=== PATIENT | male | born 1945 ===

== ENCOUNTER 2017-09-10 09:43 | Inpatient (IN) | payer MEDICARE, OTHER ==
[2017-09-10 09:43] VITALS: BMI 21.7
--- NOTE | 2017-09-10 12:13 | ED PDOC ---
HPI: General Adult Time Seen by Provider: 09/10/17 11:08 Chief Complaint (Nursing): Abnormal Skin Integrity Chief Complaint (Provider): Extremity Pain History Per: Patient History/Exam Limitations: no limitations Onset/Duration Of Symptoms: Days (x 1 month ) Current Symptoms Are (Timing): Still Present Additional Complaint(s): 71 year old male with a history of diabetes, s/p right DKA who presents to the ED c/o pain in right stump associated with clear discharge. Denies fever. PMD: Dr. Misael Thomas Past Medical History Reviewed: Historical Data, Nursing Documentation, Vital Signs Vital Signs: Last Vital Signs Temp 97 F L 09/10/17 10:59 Pulse 94 H 09/10/17 10:59 Resp 18 09/10/17 10:59 BP 117/62 09/10/17 10:59 Pulse Ox 98 09/10/17 13:42 - Medical History PMH: Anemia, Arthritis (osteoarthritis), Asthma (Required transfusions), Diabetes, GERD Denies: CHF, COPD, HTN, Hypercholesterolemia, Hypothyroidism, Chronic Kidney Disease, Rheumatoid Arthritis - Surgical History Other surgeries: right BKA - Family History Family History: States: Unknown Family Hx - Home Medications Home Medications: Ambulatory Orders Medication Instructions Recorded Ferrous Sulfate 325 mg PO BID 10/09/14 Metformin Hydrochloride/Janee 1 tab PO BID #0 tab 02/04/15 [Janumet 1000 mg-50 mg] Naproxen Sodium [Aleve] 440 mg PO BID PRN 04/10/15 - Allergies Allergies/Adverse Reactions: Allergies Allergy/AdvReac Type Severity Reaction Status Date / Time No Known Allergies Allergy Verified 09/10/17 10:59 Review of Systems ROS Statement: Except As Marked, All Systems Reviewed And Found Negative Constitutional: Negative for: Fever Musculoskeletal: Positive for: Other (right stump pain) Physical Exam - Reviewed Nursing Documentation Reviewed: Yes Vital Signs Reviewed: Yes - Physical Exam Appears: Positive for: Non-toxic, No Acute Distress Head Exam: Positive for: ATRAUMATIC, NORMOCEPHALIC Skin: Positive for: Normal Color, Warm, Dry Eye Exam: Positive for: Normal appearance, EOMI Cardiovascular/Chest: Positive for: Regular Rate, Rhythm. Negative for: Murmur Respiratory: Positive for: Normal Breath Sounds. Negative for: Wheezing Gastrointestinal/Abdominal: Positive for: Normal Exam, Soft. Negative for: Tenderness Extremity: Positive for: Other (right stump has clear serous fluid). Negative for: Tenderness (erytema or warmth from distal stump) Neurologic/Psych: Positive for: Alert, Oriented - Laboratory Results Result Diagrams: 09/10/17 12:15 09/10/17 12:15 - ECG O2 Sat by Pulse Oximetry: 98 (RA) Pulse Ox Interpretation: Normal Medical Decision Making Medical Decision Making: Time: 11:54 Initial Plan: --VBG shock panel --CMP --CBC --Blood cx --Wound cx --Tibula Fibula right x-ray Time: 12:55 Tibula Fibula X-ray FINDINGS: BONES: Amputation changes at the level of the proximal 1/3 of the right tibia/ fibula. The distal of bony margins of the tibia and fibula are somewhat irregular with areas of what probably represent chronic periosteal reaction possibly due to the amputation itself, however the possibility of an early osteomyelitis cannot be excluded. Followup MRI or 3 phase bone scan recommended. No gas is seen within the soft tissues. JOINT SPACES: Minor degenerative changes medial compartment. OTHER FINDINGS: None. IMPRESSION: Amputation at the level of the proximal right tibia and fibula. Of the distal bony margins of the tibia and fibula are somewhat irregular with what appears represent some chronic periosteal reaction due the amputation itself however the possibility of early osteomyelitis not excluded. Followup three-phase bone scan or MRI of recommended. No evidence of subcutaneous emphysema. Scribe Attestation: Documented by Bozena Rm, acting as a scribe for Dante Montana MD Provider Scribe Attestation: All medical record entries made by the Scribe were at my direction and personally dictated by me. I have reviewed the chart and agree that the record accurately reflects my personal performance of the history, physical exam, medical decision making, and the department course for this patient. I have also personally directed, reviewed, and agree with the discharge instructions and disposition. Disposition - Clinical Impression Clinical Impression: Osteomyelitis, DM type 2 (diabetes mellitus, type 2) - Patient ED Disposition Is Patient to be Admitted: Yes - Disposition Disposition Time: 16:12 Condition: FAIR Forms: [employer] (Swedish) - Pt Status Changed To: Hospital Disposition Of: Inpatient - Admit Certification Admit to Inpatient:: After my assessment, the patient will require hospitalization for at least two midnights. This is because of the severity of symptoms shown, intensity of services needed, and/or the medical risk in this patient being treated as an outpatient. - POA Present On Arrival: None
[2017-09-10 12:32] LABS: VENOUS BLOOD GAS BASE EXCESS 1.7 mmol/L (0.0-2.0); VENOUS BLOOD GAS PCO2 42 mmHg (40-60); VENOUS BLOOD GAS PO2 51 mm/Hg (30-55); VENOUS BLOOD PH 7.41 (7.32-7.43)
[2017-09-10 12:34] LABS: BASO % 0.6 % (0.0-2.0); EOS # 0.7 K/uL (0.0-0.7); EOS % 9.4 % (0.0-4.0); HEMOGLOBIN 10.3 g/dL (12.0-18.0); LYMPH # 1.7 K/uL (1.0-4.3); LYMPH % 21.9 % (20.0-40.0); MEAN CELL VOLUME 87.8 fl (80.0-94.0); MEAN CORPUSCULAR HGB CONC 34.1 g/dL (33.0-37.0); MEAN PLATELET VOLUME 8.6 fl (7.2-11.7); MONO # 0.4 K/uL (0.0-0.8); MONO % 5.8 % (0.0-10.0); NEUT # 4.8 K/uL (1.8-7.0); NEUT % 62.3 % (50.0-75.0); NRBC % 0.1 % (0.0-0.0); RBC 3.44 Mil/uL (4.40-5.90); RED CELL DISTRIBUTION WIDTH 14.2 % (11.5-14.5); WHITE BLOOD COUNT 7.6 K/uL (4.8-10.8)
[2017-09-10 12:35] LABS: ALBUMIN 4.2 g/dL (3.5-5.0); ALT/SGPT 30 U/L (21-72); AST/SGOT 37 U/L (17-59); BLOOD UREA NITROGEN 28 mg/dl (9-20); CALCIUM 9.8 mg/dL (8.4-10.2); GFR AFRICAN-AMERICAN > 60; GFR NON-AFRICAN AMERICAN > 60
[2017-09-10 12:38] LABS: ALB/GLOB RATIO 0.9 (1.0-2.1)
--- NOTE | 2017-09-10 12:56 | RAD ---
PROCEDURE: Right tibia/ fibula dated 09/10/2017 HISTORY: Rule out osteomyelitis COMPARISON: No prior study available for comparison TECHNIQUE: AP and lateral views obtained. FINDINGS: BONES: Amputation changes at the level of the proximal 1/3 of the right tibia/ fibula. The distal of bony margins of the tibia and fibula are somewhat irregular with areas of what probably represent chronic periosteal reaction possibly due to the amputation itself, however the possibility of an early osteomyelitis cannot be excluded. Followup MRI or 3 phase bone scan recommended. No gas is seen within the soft tissues. JOINT SPACES: Minor degenerative changes medial compartment. OTHER FINDINGS: None. IMPRESSION: Amputation at the level of the proximal right tibia and fibula. Of the distal bony margins of the tibia and fibula are somewhat irregular with what appears represent some chronic periosteal reaction due the amputation itself however the possibility of early osteomyelitis not excluded. Followup three-phase bone scan or MRI of recommended. No evidence of subcutaneous emphysema. The the the the the
[2017-09-10] MEDS ORDERED: Gadodiamide 287 MG/ML VIAL (15ML) IV ONE (14:24)
[2017-09-10] MEDS ORDERED: Piperacillin/Tazobact 3.375 GM in Sodium Chloride 0.9% 100 ML IVPB STA (15:06)
--- NOTE | 2017-09-10 16:15 | MRI ---
PROCEDURE: Right lower extremity MRI without and with contrast HISTORY: r/o osteo BKA stump COMPARISON: Right tibia fibula radiographs 09/10/2017. TECHNIQUE: Multiplanar multisequential MR imaging of the stump of the patient's right lower extremity, status post right below the knee and amputation several years previously was performed prior to and following intravenous gadolinium striation. Omniscan was utilized for gadolinium contrast to a volume of 13 cc. T1 weighted fat suppression imaging was utilized in contrast related as well as precontrast T1 imaging. FINDINGS: There is extensive edema seen throughout the [place]row of the residual proximal diaphysis of the right tibia and is seen greater the medial the lateral right tibial metaphysis as well. This edema pattern extends to the left tibial plateau level without gross cortical erosion appreciated. No fractures appreciated and the pattern is seen enhancing in the same distribution following intravenous gadolinium administration. The findings are compatible with extensive osteomyelitis throughout the residual right tibia. Incidental capture of the right knee reveals no subluxation or dislocation although 4.3 cm Gonzalez's cyst is identified. Advanced osteoarthritis seen throughout the incidentally captured bilateral knees in all 3 compartments. Prominent cellulitis pattern is appreciated throughout the amputation stump as well, with a small abscess measuring 0.9 x 1.3 x 3.2 cm deep to the subcutaneous fat at the distal midline stump soft tissue. IMPRESSION: Findings most compatible with extensive osteomyelitis affecting the residual tibia status post [id number] amputation right lower extremity. 3.2 cm abscess has developed in the midline soft tissues deep to the subcutaneous fat at the distal most portion of the stump. Small medial Gonzalez's cyst incidentally noted. Incidental degenerative joint disease bilateral knees.
--- NOTE | 2017-09-10 17:03 | CP.PCM.HP ---
History of Present Illness - History of Present Illness History of Present Illness: CC: leg pain HPI: 71 year old male PMH DM with bilateral BKA, presents with a several day history of worsening moderate sharp nonradiating pain at site of L BKA, with some oozing of yellow drainage. XR and MRI +osteomyelitis. Vanc and Zosyn initiated in ER. No WBC, afebrile. ID consult Dr. Camejo. Discussed with ER physician. ROS: Per HPI, all other systems reviewed and neg PMH: DM PSH: B/L BKA FH: DM SH: denies tobacco, ETOH, IVDU NKDA Vitals Reviewed GEN: WDWN, ALERT, COOPERATIVE HEENT: NCAT, PERRL, EOMI HEART: RRR, +S1S2, NO MRG LUNG: CTAB, NO WRR ABD: SOFT, NT, ND, NO HSM, NO MASSES EXT: B/L BKA. AREA OF DRAINAGE L BKA NEURO: AAOX3 SKIN: WARM, DRY PSYCH: NORMAL MOOD, NORMAL AFFECT LABS 09/10/17 09/10/17 09/10/17 12:15 12:15 11:35 WBC 7.6 RBC 3.44 L Hgb 10.3 L Hct 30.2 L MCV 87.8 D MCH 30.0 MCHC 34.1 RDW 14.2 Plt Count 435 H MPV 8.6 Neut % (Auto) 62.3 Lymph % (Auto) 21.9 Jefferson % (Auto) 5.8 Eos % (Auto) 9.4 H Baso % (Auto) 0.6 Neut # 4.8 Lymph # 1.7 Jefferson # 0.4 Eos # 0.7 Baso # 0.0 pO2 51 VBG pH 7.41 VBG pCO2 42 VBG HCO3 26.0 VBG Total CO2 27.9 VBG O2 Sat (Calc) 89.7 H VBG Base Excess 1.7 VBG Potassium 4.8 Sodium 140 134.0 Chloride 101 103.0 Glucose 155 H Lactate 1.0 FiO2 21.0 Potassium 4.8 Carbon Dioxide 25 Anion Gap 19 BUN 28 H Creatinine 1.0 Est GFR ( Amer) > 60 Est GFR (Non-Af Amer) > 60 Random Glucose 158 H Calcium 9.8 Total Bilirubin 0.2 AST 37 ALT 30 Alkaline Phosphatase 106 Total Protein 9.0 H Albumin 4.2 Globulin 4.8 H Albumin/Globulin Ratio 0.9 L Venous Blood Potassium 4.8 IMAGING STUDIES XR and MRI + osteomyelitis MEDICATIONS Ferrous Sulfate [Ferrous Sulfate] 325 mg PO BID Piperacillin/Tazobact [Zosyn] 3.375 gm Sodium Chloride 0.9% 100 ml IVPB Q8 Vancomycin [Vancomycin Inj] 1,000 mg Sodium Chloride 0.9% 250 ml IVPB Q12H SITagliptin [Januvia] 50 mg PO DAILY ASSESSMENT AND PLAN 71 year old male PMH DM with bilateral BKA, presents with a several day history of worsening moderate sharp nonradiating pain at site of L BKA, with some oozing of yellow drainage. XR and MRI +osteomyelitis. Vanc and Zosyn initiated in ER. No WBC, afebrile. ID consult Dr. Camejo. Discussed with ER physician. Osteomyelitis L BKA afebrile, no leukocytosis Vanc and Zosyn initiated 09/10/[address] Camejo appreciated and followed PICC for tomorrow by IR DM Continue Januvia accuchecks complex carb diet ISS Azotemia NS @ 125 cc/hr one bag monitor renal function VTE ppx Lovenox Present on Admission - Present on Admission Any Indicators Present on Admission: No Past Patient History - Infectious Disease Hx of Infectious Diseases: None - Tetanus Immunizations Tetanus Immunization: Unknown - Past Medical History & Family History Past Medical History?: Yes - Past Social History Smoking Status: Never Smoked - CARDIAC Hx Congestive Heart Failure: No Hx Hypercholesterolemia: No Hx Hypertension: No - PULMONARY Hx Asthma: Yes (Required transfusions) Hx Chronic Obstructive Pulmonary Disease (COPD): No - NEUROLOGICAL Hx Neurological Disorder: No - HEENT Hx HEENT Problems: No - RENAL Hx Chronic Kidney Disease: No - ENDOCRINE/METABOLIC Hx Hypothyroidism: No - HEMATOLOGICAL/ONCOLOGICAL Hx Anemia: Yes - INTEGUMENTARY Hx Dermatological Problems: No - MUSCULOSKELETAL/RHEUMATOLOGICAL Hx Arthritis: Yes (osteoarthritis) Hx Rheumatoid Arthritis: No - GASTROINTESTINAL Hx Gastrointestinal Disorders: Yes Hx Gastroesophageal Reflux: Yes - GENITOURINARY/GYNECOLOGICAL Hx Genitourinary Disorders: No - PSYCHIATRIC Hx Psychophysiologic Disorder: No Hx Substance Use: No - SURGICAL HISTORY Hx Surgeries: Yes Hx Amputation: Yes (bilateral bka) Other/Comment: R BKA, L foot surgery/amputations, patient currently goes to hyperbaric treatment,. right finger amputation as a child - ANESTHESIA Hx Anesthesia: Yes Hx Anesthesia Reactions: No Hx Malignant Hyperthermia: No Meds Allergies/Adverse Reactions: Allergies Allergy/AdvReac Type Severity Reaction Status Date / Time No Known Allergies Allergy Verified 09/10/17 10:59 Results - Vital Signs Recent Vital Signs: Last Vital Signs Temp 97 F L 09/10/17 10:59 Pulse 94 H 09/10/17 10:59 Resp 18 09/10/17 10:59 BP 117/62 09/10/17 10:59 Pulse Ox 98 09/10/17 16:12 - Labs Result Diagrams: 09/10/17 12:15 09/10/17 12:15 Labs: Laboratory Results - last 24 hr 09/10/17 09/10/17 09/10/17 11:35 12:15 12:15 WBC 7.6 RBC 3.44 L Hgb 10.3 L Hct 30.2 L MCV 87.8 D MCH 30.0 MCHC 34.1 RDW 14.2 Plt Count 435 H MPV 8.6 Neut % (Auto) 62.3 Lymph % (Auto) 21.9 Jefferson % (Auto) 5.8 Eos % (Auto) 9.4 H Baso % (Auto) 0.6 Neut # 4.8 Lymph # 1.7 Jefferson # 0.4 Eos # 0.7 Baso # 0.0 pO2 51 VBG pH 7.41 VBG pCO2 42 VBG HCO3 26.0 VBG Total CO2 27.9 VBG O2 Sat (Calc) 89.7 H VBG Base Excess 1.7 VBG Potassium 4.8 Sodium 134.0 140 Chloride 103.0 101 Glucose 155 H Lactate 1.0 FiO2 21.0 Potassium 4.8 Carbon Dioxide 25 Anion Gap 19 BUN 28 H Creatinine 1.0 Est GFR ( Amer) > 60 Est GFR (Non-Af Amer) > 60 Random Glucose 158 H Calcium 9.8 Total Bilirubin 0.2 AST 37 ALT 30 Alkaline Phosphatase 106 Total Protein 9.0 H Albumin 4.2 Globulin 4.8 H Albumin/Globulin Ratio 0.9 L Venous Blood Potassium 4.8
[2017-09-10] MEDS ORDERED: Piperacillin/Tazobact 3.375 GM in Sodium Chloride 0.9% 100 ML IVPB SCH (17:15)
[2017-09-10] MEDS: Insulin Regular 100 units/ml SC SCH (22:23)
[2017-09-11] MEDS ORDERED: Piperacillin/Tazobact 3.375 GM in Sodium Chloride 0.9% 100 ML IVPB SCH (04:00)
[2017-09-11 06:11] LABS: HEMOGLOBIN 9.3 g/dL (12.0-18.0); MEAN CELL VOLUME 88.5 fl (80.0-94.0); MEAN CORPUSCULAR HEMOGLOBIN 29.2 pg (27.0-31.0); RBC 3.19 Mil/uL (4.40-5.90); RED CELL DISTRIBUTION WIDTH 13.8 % (11.5-14.5); WHITE BLOOD COUNT 8.4 K/uL (4.8-10.8)
[2017-09-11 06:21] LABS: BLOOD UREA NITROGEN 25 mg/dl (9-20); GFR AFRICAN-AMERICAN > 60; GFR NON-AFRICAN AMERICAN > 60
[2017-09-11] MEDS: Insulin Regular 100 units/ml SC SCH ×4 (06:35→21:37)
[2017-09-11] MEDS: Enoxaparin 40 mg Syringe SC SCH (08:12)
--- NOTE | 2017-09-11 10:10 | CP.PCM.PN ---
<Kyra Garcia - Last Filed: 09/11/17 15:12> Subjective - Date & Time of Evaluation Date of Evaluation: 09/11/17 Time of Evaluation: 10:06 - Subjective Subjective: 71 y/o male patient with PMHx of DM and bilateral BKA was seen and evaluated at bedside this morning for a right distal stump wound. Patient is AAOx3 and is in NAD. Patient denies of any acute overnight events. States that the wound was draining yellow fluid but not pus at the time of admission. Patient states that the drainage has stopped since the admission. Denies of having any pain to the stump today unless if touched. Denies of having any overnight F/N/V/C/SOB/CP/ headache/diarrhea. Denies of having any new complains at this time. Objective - Vital Signs/Intake and Output Vital Signs (last 24 hours): Temp Pulse Resp BP Pulse Ox 97.6 F 72 18 105/63 100 09/11/17 07:56 09/11/17 07:56 09/11/17 07:56 09/11/17 07:56 09/11/17 07:56 - Medications Medications: Current Medications Enoxaparin Sodium (Lovenox) 40 mg SC DAILY HERMINIO PRN Reason: Protocol Last Admin: 09/11/17 08:12 Dose: 40 mg Ferrous Sulfate (Feosol) 325 mg PO BID HERMINIO Last Admin: 09/11/17 08:12 Dose: 325 mg Vancomycin HCl 1 gm/ Sodium (Chloride) 250 mls @ 166.667 mls/hr IVPB Q12H HERMINIO PRN Reason: Protocol Last Admin: 09/11/17 04:55 Dose: 166.667 mls/hr Piperacillin Sod/Tazobactam (Sod 3.375 gm/ Sodium Chloride) 100 mls @ 100 mls/ hr IVPB Q8@0400,1200,2000 HERMINIO PRN Reason: Protocol Last Admin: 09/11/17 03:33 Dose: 100 mls/hr Insulin Human Regular (Humulin R) 0 units SC ACHS HERMINIO PRN Reason: Protocol Last Admin: 09/11/17 06:35 Dose: Not Given Sitagliptin Phosphate (Januvia) 50 mg PO DAILY HERMINIO Last Admin: 09/11/17 08:12 Dose: 50 mg - Labs Labs: 09/11/17 05:35 09/11/17 05:44 - Constitutional Appears: Well, Non-toxic, No Acute Distress - Head Exam Head Exam: ATRAUMATIC - Eye Exam Eye Exam: Normal appearance - ENT Exam ENT Exam: Normal Exam - Neck Exam Neck Exam: Full ROM, Normal Inspection - Respiratory Exam Respiratory Exam: Clear to Ausculation Bilateral, NORMAL BREATHING PATTERN - Cardiovascular Exam Cardiovascular Exam: REGULAR RHYTHM, +S1, +S2 - GI/Abdominal Exam GI & Abdominal Exam: Soft, Normal Bowel Sounds - Rectal Exam Rectal Exam: Deferred - Extremities Exam Extremities Exam: Full ROM, Normal Inspection, Tenderness - Back Exam Back Exam: Full ROM, NORMAL INSPECTION - Neurological Exam Neurological Exam: Alert, Awake, Oriented x3 - Psychiatric Exam Psychiatric exam: Normal Affect, Normal Mood - Skin Skin Exam: Dry, Warm Additional comments: wound measuring approximately 1.0 cm x 1.0 cm x 0.1 cm on the distal aspect of the right BKA stump. No active drainage, no malodor, no tunneling, no undermining, no surrounding erythema, no probe to bone, mild non-pitting edema noted on the right Left superior to fibular head, healed ulceration noted with no break in the skin Assessment and Plan - Assessment and Plan (Free Text) Assessment: 71 y/o male patient with PMHx of DM and bilateral BKA evaluated for a right distal stump wound. Plan: 1). Osteomyelitis R BKA - afebrile, no leukocytosis - Vanc and Zosyn initiated 09/10/17 - ID consult Dr. Camejo appreciated and followed - PICC today by IR 2). Diabetes - Continue Januvia - accuchecks - complex carb diet - ISS 3). Azotemia - NS @ 125 cc/hr - Monitor renal function 4). VTE ppx - Lovenox 40 mg qd <Becky Paniagua - Last Filed: 09/11/17 16:18> Objective - Vital Signs/Intake and Output Vital Signs (last 24 hours): Temp Pulse Resp BP Pulse Ox 97.4 F L 80 18 102/79 100 09/11/17 10:55 09/11/17 11:20 09/11/17 10:55 09/11/17 11:20 09/11/17 07:56 - Medications Medications: Current Medications Ciprofloxacin (Cipro) 500 mg PO Q12 HERMINIO PRN Reason: Protocol Stop: 09/25/17 10:46 Last Admin: 09/11/17 12:09 Dose: 500 mg Enoxaparin Sodium (Lovenox) 40 mg SC DAILY HERMINIO PRN Reason: Protocol Last Admin: 09/11/17 08:12 Dose: 40 mg Ferrous Sulfate (Feosol) [address] [facility] Last Admin: 09/11/17 08:12 Dose: 325 mg Vancomycin HCl 1 gm/ Sodium (Chloride) 250 mls @ 166.667 mls/hr IVPB Q12H HERMINIO PRN Reason: Protocol Last Admin: 09/11/17 04:55 Dose: 166.667 mls/hr Sodium Chloride (Sodium Chloride 0.9%) 1,000 mls @ 100 mls/hr IV .Q10H [facility] Stop: 09/12/17 10:11 Last Admin: 09/11/17 12:09 Dose: 100 mls/hr Insulin Human Regular (Humulin R) 0 units SC ACHS HERMINIO PRN Reason: Protocol Last Admin: 09/11/17 06:35 Dose: Not Given Sitagliptin Phosphate (Januvia) [address] [facility] Last Admin: 09/11/17 08:12 Dose: 50 mg - Labs Labs: 09/11/17 05:35 09/11/17 05:44 Attending/Attestation - Attestation I have personally seen and examined this patient.: Yes I have fully participated in the care of the patient.: Yes I have reviewed all pertinent clinical information, including history, physical exam and plan: Yes Notes (Text): 09/11/17 16:17 seen examined discussed with resident Dr. Kyra Garcia. Agree with findings and plan as above. ABX adjusted to Vancomycin 1 gm q12 hours for 6 weeks and Cipro 500 mg PO Q12 for 2 weeks. Patient to also be evaluated by General Surgery for possible I/D of appx 3 cm abscess.
[2017-09-11] MEDS ORDERED: Lidocaine 1% Inj (20ml) ONE (10:47)
--- NOTE | 2017-09-11 11:26 | PCM.SURG1 ---
Surgeon's Initial Post Op Note - Surgeon's Notes Surgeon: Howard Covington MD Water Treatment Technician: NONE Type of Anesthesia: Local Pre-Operative Diagnosis: Poor venous access Operative Findings: US showed a patent right brachial veiN. Post-Operative Diagnosis: Poor venous access Operation Performed: Single lumen picc placment right brachial vein, 40 cm. Tip is in the SVC. Specimen/Specimens Removed: none Estimated Blood Loss: EBL {In ML}: 2 Blood Products Given: N/A Drains Used: No Drains Post-Op Condition: Fair Date of Surgery/Procedure: 09/11/17 Time of Surgery/Procedure: 11:20
[2017-09-11] MEDS: Sodium Chloride 0.9% 1,000 ML IV SCH ×2 (12:09→21:40)
[2017-09-12 06:23] LABS: BASO % 0.3 % (0.0-2.0); EOS # 0.5 K/uL (0.0-0.7); EOS % 6.3 % (0.0-4.0); HEMOGLOBIN 8.8 g/dL (12.0-18.0); LYMPH # 1.6 K/uL (1.0-4.3); LYMPH % 18.8 % (20.0-40.0); MEAN CELL VOLUME 89.7 fl (80.0-94.0); MEAN CORPUSCULAR HEMOGLOBIN 29.3 pg (27.0-31.0); MEAN CORPUSCULAR HGB CONC 32.6 g/dL (33.0-37.0); MEAN PLATELET VOLUME 8.1 fl (7.2-11.7); MONO # 0.6 K/uL (0.0-0.8); MONO % 7.2 % (0.0-10.0); NEUT # 5.8 K/uL (1.8-7.0); NEUT % 67.4 % (50.0-75.0); RED CELL DISTRIBUTION WIDTH 14.2 % (11.5-14.5); WHITE BLOOD COUNT 8.6 K/uL (4.8-10.8)
[2017-09-12 06:32] LABS: BLOOD UREA NITROGEN 19 mg/dl (9-20); CALCIUM 8.5 mg/dL (8.4-10.2); GFR AFRICAN-AMERICAN > 60; GFR NON-AFRICAN AMERICAN > 60
--- NOTE | 2017-09-12 07:11 | CP.PCM.CON ---
History of Present Illness - History of Present Illness History of Present Illness: General surgery consult note for Dr. Graciela Veronica, PGY-1 Pt S & E at bedside. 71M w/PMH sig for B/L BKA consulted for L BKA abscess evaluation. Pt admitted to hospital for drainage from L BKA stump, which has been ongoing for past few month. Denies pain, F & C, other problems. PMH: DM, anemia, osteoarthritis, GERD PSH: B/L BKA All: NKDA SH: Denies ETOH, tobacco or illicit drug use Review of Systems - Review of Systems All systems: reviewed and no additional remarkable complaints except - Constitutional Constitutional: absent: Chills, Fever - EENT Nose/Mouth/Throat: absent: Sore Throat - Cardiovascular Cardiovascular: absent: Chest Pain - Respiratory Respiratory: absent: Cough - Gastrointestinal Gastrointestinal: absent: Abdominal Pain - Genitourinary Genitourinary: absent: Change in Urinary Stream - Integumentary Integumentary: Non-Healing Lesions - Psychiatric Psychiatric: absent: Change in Appetite Past Patient History - Infectious Disease Hx of Infectious Diseases: None - Tetanus Immunizations Tetanus Immunization: Unknown - Past Medical History & Family History Past Medical History?: Yes - Past Social History Smoking Status: Never Smoked - CARDIAC Hx Cardiac Disorders: No Hx Congestive Heart Failure: No Hx Hypercholesterolemia: No Hx Hypertension: No - PULMONARY Hx Respiratory Disorders: No Hx Chronic Obstructive Pulmonary Disease (COPD): No Hx Pulmonary Embolism: No - NEUROLOGICAL Hx Neurological Disorder: No - HEENT Hx HEENT Problems: Yes Other/Comment: reading glasses - RENAL Hx Chronic Kidney Disease: No - ENDOCRINE/METABOLIC Hx Endocrine Disorders: Yes Hx Diabetes Mellitus Type 2: Yes Hx Hypothyroidism: No - HEMATOLOGICAL/ONCOLOGICAL Hx Blood Disorders: Yes Hx AIDS: No Hx Anemia: Yes Hx Hepatitis C: No Hx Human Immunodeficiency Virus (HIV): No - INTEGUMENTARY Hx Dermatological Problems: No - MUSCULOSKELETAL/RHEUMATOLOGICAL Hx Musculoskeletal Disorders: Yes Hx Arthritis: Yes (to both hands, reports not taking any meds for problem) Hx Falls: Yes (8 mos ago) Hx Fractures: No - GASTROINTESTINAL Hx Gastrointestinal Disorders: Yes Hx Gastroesophageal Reflux: Yes - GENITOURINARY/GYNECOLOGICAL Hx Genitourinary Disorders: No - PSYCHIATRIC Hx Psychophysiologic Disorder: No Hx Substance Use: No - SURGICAL HISTORY Hx Surgeries: Yes Hx Amputation: Yes (bilateral bka, L 3yrs ago, R 15yrs ago) Other/Comment: R BKA, L foot surgery/amputations, patient currently goes to hyperbaric treatment,. right index and middle finger amputation as a teen from work accident - ANESTHESIA Hx Anesthesia: Yes Hx Anesthesia Reactions: No Hx Malignant Hyperthermia: No Meds Allergies/Adverse Reactions: Allergies Allergy/AdvReac Type Severity Reaction Status Date / Time No Known Allergies Allergy Verified 09/10/17 10:59 - Medications Medications: Current Medications Ciprofloxacin (Cipro) 500 mg PO Q12 HER[facility]IO PRN Reason: Protocol Stop: 09/25/17 10:46 Last Admin: 09/11/17 21:38 Dose: 500 mg Enoxaparin Sodium (Lovenox) 40 mg SC DAILY [facility] PRN Reason: Protocol Last Admin: 09/11/17 08:12 Dose: 40 mg Ferrous Sulfate (Feosol) 325 mg PO BID [facility] [place] Last Admin: 09/11/17 16:34 Dose: 325 mg Vancomycin HCl 1 gm/ Sodium (Chloride) 250 mls @ 166.667 mls/hr IVPB Q12H [facility] [place] PRN Reason: Protocol Last Admin: 09/12/17 05:00 Dose: 166.667 mls/hr Sodium Chloride (Sodium Chloride 0.9%) 1,000 mls @ 100 mls/hr IV .Q10H [facility] Stop: 09/12/17 10:11 Last Admin: 09/11/17 21:40 Dose: Not Given Insulin Human Regular (Humulin R) 0 units SC ACHS HERMINIO PRN Reason: Protocol Last Admin: 09/11/17 21:37 Dose: Not Given Sitagliptin Phosphate (Januvia) 50 mg PO DAILY [facility] [place] Last Admin: 09/11/17 08:12 Dose: 50 mg Physical Exam - Constitutional Appears: Non-toxic, No Acute Distress - Head Exam Head Exam: ATRAUMATIC, NORMAL INSPECTION, NORMOCEPHALIC - Eye Exam Eye Exam: EOMI, Normal appearance - ENT Exam ENT Exam: Mucous Membranes Moist, Normal Exam - Neck Exam Neck exam: Positive for: Full Rom, Normal Inspection - Respiratory Exam Respiratory Exam: NORMAL BREATHING PATTERN - GI/Abdominal Exam GI & Abdominal Exam: Normal Bowel Sounds, Soft. absent: Tenderness - Extremities Exam Additional comments: B/L BKA, L stump without erythema or palpable fluctuance, draining tract at distal aspect, dressing in place with scant drainage noted. - Neurological Exam Neurological exam: Alert, Oriented x3 - Psychiatric Exam Psychiatric exam: Normal Affect, Normal Mood - Skin Skin Exam: Dry, Normal Color, Warm Results - Vital Signs Recent Vital Signs: Last Vital Signs Temp 97.8 F 09/12/17 00:09 Pulse 81 09/12/17 00:09 Resp 18 09/12/17 00:09 BP 106/63 09/12/17 00:09 Pulse Ox 99 09/12/17 00:09 - Labs Result Diagrams: 09/12/17 05:25 09/12/17 05:25 Labs: Laboratory Results - last 24 hr 09/11/17 09/11/17 09/11/17 11:32 15:42 21:07 WBC RBC Hgb Hct MCV MCH MCHC RDW Plt Count MPV Neut % (Auto) Lymph % (Auto) [place] % (Auto) Eos % (Auto) Baso % (Auto) Neut # Lymph # [place] # Eos # Baso # Sodium Potassium Chloride Carbon Dioxide Anion Gap BUN Creatinine Est GFR ( Amer) Est GFR (Non-Af Amer) POC Glucose (mg/dL) 180 H 251 H 97 Random Glucose Calcium 09/12/17 09/12/17 09/12/17 05:25 05:25 05:49 WBC 8.6 RBC 3.00 L Hgb 8.8 L Hct 26.9 L MCV 89.7 MCH 29.3 MCHC 32.6 L RDW 14.2 Plt Count 322 MPV 8.1 Neut % (Auto) 67.4 Lymph % (Auto) 18.8 L [place] % (Auto) 7.2 Eos % (Auto) 6.3 H Baso % (Auto) 0.3 Neut # 5.8 Lymph # 1.6 [place] # 0.6 Eos # 0.5 Baso # 0.0 Sodium 140 Potassium 3.9 Chloride 106 Carbon Dioxide 25 Anion Gap 13 BUN 19 Creatinine 1.0 Est GFR ( Amer) > 60 Est GFR (Non-Af Amer) > 60 POC Glucose (mg/dL) 137 H Random Glucose 154 H Calcium 8.5 Assessment & Plan - Assessment and Plan (Free Text) Assessment: 71M w/PMH sig for B/L BKA with draining tract from L BKA Plan: Cont IV Abx No surgical intervention at this time, tract already draining Will DW attending Veronica, PGY-1 - Date & Time Date: 09/12/17 Time: 06:40
[2017-09-12] MEDS: Insulin Regular 100 units/ml SC SCH ×4 (07:30→21:30)
[2017-09-12] MEDS: Enoxaparin 40 mg Syringe SC SCH (08:48)
[2017-09-12] MEDS: Sodium Chloride 0.9% 1,000 ML IV SCH (08:50)
--- NOTE | 2017-09-12 09:29 | CP.PCM.DIS ---
[facility] Last Filed: 09/12/17 10:32> Provider - Provider Date of Admission: 09/10/17 16:11 Attending physician: Becky Paniagua DO Time Spent in preparation of Discharge (in minutes): 20 Hospital Course - Lab Results Lab Results: Micro Results 09/10/17 12:15 Other: Please Indicate Gram Stain - Final 09/10/17 12:15 Other: Please Indicate Wound Culture - Preliminary Staphylococcus Aureus 09/10/17 16:40 Blood-Venous Blood Culture - Preliminary NO GROWTH AFTER 24 HOURS 09/10/17 12:15 Blood-Venous Blood Culture - Preliminary NO GROWTH AFTER 24 HOURS Most Recent Lab Values WBC 8.6 K/uL (4.8-10.8) 09/12/17 05:25 RBC 3.00 Mil/uL (4.40-5.90) L 09/12/17 05:25 Hgb 8.8 g/dL (12.0-18.0) L 09/12/17 05:25 Hct 26.9 % (35.0-51.0) L 09/12/17 05:25 MCV 89.7 fl (80.0-94.0) 09/12/17 05:25 MCH 29.3 pg (27.0-31.0) 09/12/17 05:25 MCHC 32.6 g/dL (33.0-37.0) L 09/12/17 05:25 RDW 14.2 % (11.5-14.5) 09/12/17 05:25 Plt Count 322 K/uL (130-400) 09/12/17 05:25 MPV 8.1 fl (7.2-11.7) 09/12/17 05:25 Neut % (Auto) 67.4 % (50.0-75.0) 09/12/17 05:25 Lymph % (Auto) 18.8 % (20.0-40.0) L 09/12/17 05:25 [place] % (Auto) 7.2 % (0.0-10.0) 09/12/17 05:25 Eos % (Auto) 6.3 % (0.0-4.0) H 09/12/17 05:25 Baso % (Auto) 0.3 % (0.0-2.0) 09/12/17 05:25 Neut # 5.8 K/uL (1.8-7.0) 09/12/17 05:25 Lymph # 1.6 K/uL (1.0-4.3) 09/12/17 05:25 [place] # 0.6 K/uL (0.0-0.8) 09/12/17 05:25 Eos # 0.5 K/uL (0.0-0.7) 09/12/17 05:25 Baso # 0.0 K/uL (0.0-0.2) 09/12/17 05:25 pO2 51 mm/Hg (30-55) 09/10/17 11:35 VBG pH 7.41 (7.32-7.43) 09/10/17 11:35 VBG pCO2 42 mmHg (40-60) 09/10/17 11:35 VBG HCO3 26.0 mmol/L 09/10/17 11:35 VBG Total CO2 27.9 mmol/L (22-28) 09/10/17 11:35 VBG O2 Sat (Calc) 89.7 % (40-65) H 09/10/17 11:35 VBG Base Excess 1.7 mmol/L (0.0-2.0) 09/10/17 11:35 VBG Potassium 4.8 mmol/L (3.6-5.2) 09/10/17 11:35 Sodium 134.0 mmol/L (132-148) 09/10/17 11:35 Chloride 103.0 mmol/L (98-107) 09/10/17 11:35 Glucose 155 mg/dL (75-110) H 09/10/17 11:35 Lactate 1.0 mmol/L (0.7-2.1) 09/10/17 11:35 FiO2 21.0 % 09/10/17 11:35 Sodium 140 mmol/l (132-148) 09/12/17 05:25 Potassium 3.9 MMOL/L (3.6-5.0) 09/12/17 05:25 Chloride 106 mmol/L (98-107) 09/12/17 05:25 Carbon Dioxide 25 mmol/L (22-30) 09/12/17 05:25 Anion Gap 13 (10-20) 09/12/17 05:25 BUN 19 mg/dl (9-20) 09/12/17 05:25 Creatinine 1.0 mg/dl (0.8-1.5) 09/12/17 05:25 Est GFR ( Amer) > 60 09/12/17 05:25 Est GFR (Non-Af Amer) > 60 09/12/17 05:25 POC Glucose (mg/dL) 137 mg/dL (65-110) H 09/12/17 05:49 Random Glucose 154 mg/dL (75-110) H 09/12/17 05:25 Calcium 8.5 mg/dL (8.4-10.2) 09/12/17 05:25 Total Bilirubin 0.2 mg/dl (0.2-1.3) 09/10/17 12:15 AST 37 U/L (17-59) 09/10/17 12:15 ALT 30 U/L (21-72) 09/10/17 12:15 Alkaline Phosphatase 106 U/L (38-126) 09/10/17 12:15 Total Protein 9.0 G/DL (6.3-8.2) H 09/10/17 12:15 Albumin 4.2 g/dL (3.5-5.0) 09/10/17 12:15 Globulin 4.8 gm/dL (2.2-3.9) H 09/10/17 12:15 Albumin/Globulin Ratio 0.9 (1.0-2.1) L 09/10/17 12:15 Venous Blood Potassium 4.8 mmol/L (3.6-5.2) 09/10/17 11:35 - Hospital Course Hospital Course: 71 y/o male patient with PMHx of DM and bilateral BKA was admitted to hospital for a right distal stump wound. Upon arrival patient was afebrile and no leukocytosis was appreciated but the wound site showed drainage and increase in warmth. Wound cultures from the stump presented Staph. aureus. Patient received an MRI of the lower extremity which presented with increase in signal intensity on the right tibia which is consistent with osteomyelitis. Patient was also found to have an abscess on the right which drained on its own. General surgery team was consulted who recommended no I&D since the abscess was already draining on its own. Patient was also seen by infectious disease who recommended 6 weeks of IV vancomycin and 2 weeks of ciprofloxacin. Patient received PICC line for vermin exterminator IV abx. Patient is stable and will be discharged home. 1). Osteomyelitis R BKA - afebrile, no leukocytosis - Vanc and Zosyn initiated 09/10/17 - ID consult Dr. Camejo appreciated and followed - ABX adjusted to Vancomycin 1 gm q12 hours for 6 weeks and Cipro 500 mg PO Q12 for 2 weeks. - PICC in place 2). Diabetes - Continue Januvia - accuchecks - complex carb diet - ISS 3). Azotemia - Resolved - Date & Time of H&P Date of H&P: 09/12/17 Time of H&P: 09:18 Discharge Exam - Head Exam Head Exam: ATRAUMATIC, NORMAL INSPECTION, NORMOCEPHALIC - Eye Exam Eye Exam: Normal appearance Pupil Exam: NORMAL ACCOMODATION - ENT Exam ENT Exam: Normal Exam - Neck Exam Neck exam: Full Rom, Normal Inspection - Respiratory Exam Respiratory Exam: NORMAL BREATHING PATTERN, UNREMARKABLE - Cardiovascular Exam Cardiovascular Exam: REGULAR RHYTHM, +S1, +S2 - GI/Abdominal Exam GI & Abdominal Exam: Normal Bowel Sounds, Unremarkable - Rectal Exam Rectal Exam: Deferred - Extremities Exam Extremities exam: full ROM, normal inspection - Neurological Exam Neurological exam: Alert, Oriented x3 - Psychiatric Exam Psychiatric exam: Normal Affect, Normal Mood - Skin Skin Exam: Normal Color, Warm Additional comments: wound measuring approximately 1.0 cm x 1.0 cm x 0.1 cm on the distal aspect of the right BKA stump. mild active drainage, no malodor, no tunneling, no undermining, no surrounding erythema, no probe to bone, mild non-pitting edema noted on the right Left superior to fibular head, healed ulceration noted with no break in the skin Discharge Plan - Discharge Medications Prescriptions: Ciprofloxacin [Cipro] 500 mg PO Q12 #14 tab Vancomycin/0.9 % Sod Chloride [Vanco 1 Gram/250 ml-0.9% NaCl] 1 gm IV Q12 #84 plast..bag - Follow Up Plan Condition: GOOD Disposition: HOME/ ROUTINE Instructions: Osteomyelitis (DC), Peripherally Inserted Central Catheters and Midline Catheters (DC) Additional Instructions: homecare services for home infusions . follow up with pmd 7-10 days Referrals: Deborah Polanco MD [Staff Provider] - Cassandra Camejo MD [Staff Provider] - Misael Thomas MD [Family Provider] - <Becky Paniagua - Last Filed: 09/12/17 11:23> Provider - Provider Date of Admission: 09/10/17 16:11 Attending physician: Becky Paniagua DO Hospital Course - Lab Results Lab Results: Micro Results 09/10/17 12:15 Other: Please Indicate Gram Stain - Final 09/10/17 12:15 Other: Please Indicate Wound Culture - Preliminary Staphylococcus Aureus 09/10/17 16:40 Blood-Venous Blood Culture - Preliminary NO GROWTH AFTER 24 HOURS 09/10/17 12:15 Blood-Venous Blood Culture - Preliminary NO GROWTH AFTER 24 HOURS Most Recent Lab Values WBC 8.6 K/uL (4.8-10.8) 09/12/17 05:25 RBC 3.00 Mil/uL (4.40-5.90) L 09/12/17 05:25 Hgb 8.8 g/dL (12.0-18.0) L 09/12/17 05:25 Hct 26.9 % (35.0-51.0) L 09/12/17 05:25 MCV 89.7 fl (80.0-94.0) 09/12/17 05:25 MCH 29.3 pg (27.0-31.0) 09/12/17 05:25 MCHC 32.6 g/dL (33.0-37.0) L 09/12/17 05:25 RDW 14.2 % (11.5-14.5) 09/12/17 05:25 Plt Count 322 K/uL (130-400) 09/12/17 05:25 MPV 8.1 fl (7.2-11.7) 09/12/17 05:25 Neut % (Auto) 67.4 % (50.0-75.0) 09/12/17 05:25 Lymph % (Auto) 18.8 % (20.0-40.0) L 09/12/17 05:25 [place] % (Auto) 7.2 % (0.0-10.0) 09/12/17 05:25 Eos % (Auto) 6.3 % (0.0-4.0) H 09/12/17 05:25 Baso % (Auto) 0.3 % (0.0-2.0) 09/12/17 05:25 Neut # 5.8 K/uL (1.8-7.0) 09/12/17 05:25 Lymph # 1.6 K/uL (1.0-4.3) 09/12/17 05:25 [place] # 0.6 K/uL (0.0-0.8) 09/12/17 05:25 Eos # 0.5 K/uL (0.0-0.7) 09/12/17 05:25 Baso # 0.0 K/uL (0.0-0.2) 09/12/17 05:25 pO2 51 mm/Hg (30-55) 09/10/17 11:35 VBG pH 7.41 (7.32-7.43) 09/10/17 11:35 VBG pCO2 42 mmHg (40-60) 09/10/17 11:35 VBG HCO3 26.0 mmol/L 09/10/17 11:35 VBG Total CO2 27.9 mmol/L (22-28) 09/10/17 11:35 VBG O2 Sat (Calc) 89.7 % (40-65) H 09/10/17 11:35 VBG Base Excess 1.7 mmol/L (0.0-2.0) 09/10/17 11:35 VBG Potassium 4.8 mmol/L (3.6-5.2) 09/10/17 11:35 Sodium 134.0 mmol/L (132-148) 09/10/17 11:35 Chloride 103.0 mmol/L (98-107) 09/10/17 11:35 Glucose 155 mg/dL (75-110) H 09/10/17 11:35 Lactate 1.0 mmol/L (0.7-2.1) 09/10/17 11:35 FiO2 21.0 % 09/10/17 11:35 Sodium 140 mmol/l (132-148) 09/12/17 05:25 Potassium 3.9 MMOL/L (3.6-5.0) 09/12/17 05:25 Chloride 106 mmol/L (98-107) 09/12/17 05:25 Carbon Dioxide 25 mmol/L (22-30) 09/12/17 05:25 Anion Gap 13 (10-20) 09/12/17 05:25 BUN 19 mg/dl (9-20) 09/12/17 05:25 Creatinine 1.0 mg/dl (0.8-1.5) 09/12/17 05:25 Est GFR ( Amer) > 60 09/12/17 05:25 Est GFR (Non-Af Amer) > 60 09/12/17 05:25 POC Glucose (mg/dL) 199 mg/dL (65-110) H 09/12/17 10:43 Random Glucose 154 mg/dL (75-110) H 09/12/17 05:25 Calcium 8.5 mg/dL (8.4-10.2) 09/12/17 05:25 Total Bilirubin 0.2 mg/dl (0.2-1.3) 09/10/17 12:15 AST 37 U/L (17-59) 09/10/17 12:15 ALT 30 U/L (21-72) 09/10/17 12:15 Alkaline Phosphatase 106 U/L (38-126) 09/10/17 12:15 Total Protein 9.0 G/DL (6.3-8.2) H 09/10/17 12:15 Albumin 4.2 g/dL (3.5-5.0) 09/10/17 12:15 Globulin 4.8 gm/dL (2.2-3.9) H 09/10/17 12:15 Albumin/Globulin Ratio 0.9 (1.0-2.1) L 09/10/17 12:15 Venous Blood Potassium 4.8 mmol/L (3.6-5.2) 09/10/17 11:35 Attending/Attestation - Attestation I have personally seen and examined this patient.: Yes I have fully participated in the care of the patient.: Yes I have reviewed all pertinent clinical information, including history, physical exam and plan: Yes Notes (Text): 09/12/17 11:23 seen examined and discussed with resident Dr. Garcia. Agree with findings and plan as above.
--- NOTE | 2017-09-12 11:23 | VASCULAR ---
PROCEDURE: Date of procedure: 09/11/2017 Procedure: 1. Placement of a right arm PICC with ultrasound and fluoroscopic guidance, CPT 56469 2. PICC tip confirmation with spot radiograph and is in the superior vena cava Medications: 1 percent lidocaine Total Fluoro time: 4 seconds Radiation: 0.41 MGy EBL: 2 cc HISTORY: Infection requiring long-term IV antibiotics TECHNIQUE: Following informed consent and procedure time-out, the patient was placed supine on the interventional table and the right arm prepped and draped in the usual sterile fashion. Ultrasound showed a patent and compressible right basilic vein. After the skin was anesthetized with lidocaine, the basilic vein was accessed with micro micropuncture technique using ultrasound guidance. A guidewire was then advanced under fluoroscopic guidance into the superior vena cava. An image documenting ultrasound guidance for vascular access was permanently saved. The length of the single-lumen 4 [place] PICC was trimmed to 40 centimeters and advanced through a peel-away sheath. The PICC was position with tip of PICC confirm a spot radiograph the superior vena cava. The PICC was secured to the patient's skin. The PICC was flushed. A biopatch and sterile dressing was applied. IMPRESSION: Placement of a single-lumen 4 [place] PICC trimmed to 40 centimeters via right basilic vein. The tip of the PICC is confirmed with spot radiograph and is in the superior vena cava.
[2017-09-13 00:06] VITALS: TEMP 97.6
[2017-09-13] MEDS: Insulin Regular 100 units/ml SC SCH ×2 (08:14→13:46)
[2017-09-13] MEDS: Enoxaparin 40 mg Syringe SC SCH (08:17)
[2017-09-13 08:28] VITALS: BP 121/63; PULSE 76; RESP 20; O2SAT 97
== END 2017-09-13 13:46 | disposition home or self-care (01) | DRG 565 ==
LOC: H.ER 09:43 → H.ERHOLD 16:11 → H.MEDSURG1 18:18
PROVIDERS: ADMIT Student in an Organized Health Care Education/Training Program; ATTEND Student in an Organized Health Care Education/Training Program
PROC: 02HV33Z Insertion of Infusion Device into Superior Vena Cava, Percutaneous Approach (ICD-10-PCS; principal; 2017-09-11)
DX: T87.43 Infection of amputation stump, right lower extremity (principal); M86.9 Osteomyelitis, unspecified; E11.69 Type 2 diabetes mellitus with other specified complication; L02.415 Cutaneous abscess of right lower limb; B95.61 Methicillin susceptible Staphylococcus aureus infection as the cause of diseases classified elsewhere; K21.9 Gastro-esophageal reflux disease without esophagitis; Z89.511 Acquired absence of right leg below knee; Y83.5 Amputation of limb(s) as the cause of abnormal reaction of the patient, or of later complication, without mention of misadventure at the time of the procedure; Z89.512 Acquired absence of left leg below knee; J45.909 Unspecified asthma, uncomplicated; R79.89 Other specified abnormal findings of blood chemistry; D64.9 Anemia, unspecified

== ENCOUNTER 2017-09-28 13:29 | Emergency (ER) | payer MEDICARE ==
[2017-09-28 13:30] VITALS: BMI 21.7
[2017-09-28 15:01] VITALS: BP 116/49; PULSE 79; RESP 16; TEMP 96.5; O2SAT 99
--- NOTE | 2017-09-28 15:35 | ED PDOC ---
HPI: Wound Care - HPI Time Seen by Provider: 09/28/17 14:35 Chief Complaint (Nursing): Wound Check Chief Complaint (Provider): Wound check History Per: Patient Additional Complaint(s): CC: leg pain HPI: 71 year old male PMH DM with bilateral BKA, presents to ED for wound check. Pt seen and evaluated here earlier in the month and was diagnosed with Osteomylitis. Pt subsequently admitted to the hospital . Pt was discharged on 06/20. Picc line in place and he is continuing to receive Vancomycin 1 gm q12 hours for 6 weeks and Cipro 500 mg PO Q12 for 2 weeks. Vancomycin drawn q 10 days. Pt conceded because he is to follow up with Dr. Thomas; however, Dr. Thoams reports he can not see him. ROS: Per HPI, all other systems reviewed and neg PMH: DM PSH: B/L BKA FH: DM SH: denies tobacco, ETOH, IVDU NKDA Past Medical History Reviewed: Historical Data, Nursing Documentation, Vital Signs Vital Signs: Last Vital Signs Temp 96.5 F L 09/28/17 14:56 Pulse 79 09/28/17 14:56 Resp 16 09/28/17 14:56 BP 116/49 L 09/28/17 14:56 Pulse Ox 99 09/28/17 14:56 - Medical History PMH: Anemia, Arthritis (to both hands, reports not taking any meds for problem) , Asthma (Required transfusions), Diabetes, GERD Denies: CHF, COPD, Fractures, HIV, HTN, Hypercholesterolemia, Hypothyroidism , Pulmonary Embolism, Chronic Kidney Disease, Rheumatoid Arthritis - Surgical History Other surgeries: b/l BKA - Family History Family History: States: Unknown Family Hx - Living Arrangements Living Arrangements: With Family - Social History Current smoker - smoking cessation education provided: No Alcohol: None Drugs: Denies - Home Medications Home Medications: Ambulatory Orders Medication Instructions Recorded Ferrous Sulfate 325 mg PO BID 10/09/14 Metformin Hydrochloride/Janee 1 tab PO BID #0 tab 02/04/15 [Janumet 1000 mg-50 mg] Ciprofloxacin [Cipro] 500 mg PO Q12 #14 tab 09/12/17 Vancomycin/0.9 % Sod Chloride 1 gm IV Q12 #84 plast..bag 09/12/17 [Vanco 1 Gram/250 ml-0.9% NaCl] - Allergies Allergies/Adverse Reactions: Allergies Allergy/AdvReac Type Severity Reaction Status Date / Time No Known Allergies Allergy Verified 09/10/17 10:59 Review of Systems ROS Statement: Except As Marked, All Systems Reviewed And Found Negative Musculoskeletal: Positive for: Other (b/l BKA) Physical Exam - Reviewed Nursing Documentation Reviewed: Yes Vital Signs Reviewed: Yes - Physical Exam Appears: Positive for: Well, Non-toxic, No Acute Distress Head Exam: Positive for: ATRAUMATIC, NORMAL INSPECTION, NORMOCEPHALIC Skin: Positive for: Normal Color, Warm, DRY Eye Exam: Positive for: EOMI, Normal appearance, PERRL ENT: Positive for: Normal ENT Inspection Neck: Positive for: Normal, Painless ROM Cardiovascular/Chest: Positive for: Regular Rate, Rhythm Respiratory: Positive for: CNT, Normal Breath Sounds Gastrointestinal/Abdominal: Positive for: Normal Exam, Bowel Sounds, Soft Back: Positive for: Normal Inspection Extremity: Positive for: Normal ROM, Other (b/l BKA. site non tender, non erythematous, no edema). Negative for: Tenderness, Deformity, Swelling Neurologic/Psych: Positive for: Alert, Oriented - Laboratory Results Result Diagrams: 09/28/17 16:22 09/28/17 16:22 - ECG O2 Sat by Pulse Oximetry: 99 Medical Decision Making Medical Decision Making: Labs resulted and reviewed with farm or ranch animal caretaker who demonstrated full understanding IMPRESSION: No significant interval change. Case discussed with Dr. Mota, who requested Pt to follow up outpt with Dr. Hamm. Pt made aware and given Dr. hamm's info, as well as clinic. advised to return to ED if at anytime condition worsens Disposition - Clinical Impression Clinical Impression: Encounter for wound re-check - Patient ED Disposition Is Patient to be Admitted: No - Disposition Referrals: Vinh Hamm MD [Staff Provider] - [facility] [Outside] Disposition: Routine/Home Disposition Time: 18:41 Condition: STABLE Instructions: Wound Infection (ED) Forms: [employer] (Croatian)
--- NOTE | 2017-09-28 16:24 | RAD ---
PROCEDURE: Right Knee Radiographs. HISTORY: hx of osteo COMPARISON: Correlations made to right tibia and fibula radiographs dated 09/10/2017. FINDINGS: There is no demonstrated fracture dislocation. There is mild tricompartmental narrowing with minimal degenerative spurring. Heterogeneity is noted in the region of the [id number] amputation, similar to the prior study. No significant interval change has occurred. IMPRESSION: No significant interval change.
[2017-09-28 16:39] LABS: BASO % 0.2 % (0.0-2.0); EOS # 0.5 K/uL (0.0-0.7); EOS % 8.3 % (0.0-4.0); LYMPH # 1.2 K/uL (1.0-4.3); LYMPH % 21.4 % (20.0-40.0); MEAN CELL VOLUME 88.8 fl (80.0-94.0); MEAN CORPUSCULAR HEMOGLOBIN 28.8 pg (27.0-31.0); MEAN CORPUSCULAR HGB CONC 32.4 g/dL (33.0-37.0); MEAN PLATELET VOLUME 8.4 fl (7.2-11.7); MONO # 0.4 K/uL (0.0-0.8); MONO % 6.4 % (0.0-10.0); NEUT # 3.6 K/uL (1.8-7.0); NEUT % 63.7 % (50.0-75.0); RBC 3.11 Mil/uL (4.40-5.90); RED CELL DISTRIBUTION WIDTH 14.8 % (11.5-14.5); WHITE BLOOD COUNT 5.7 K/uL (4.8-10.8)
[2017-09-28 16:58] LABS: ALB/GLOB RATIO 0.8 (1.0-2.1); ALBUMIN 3.8 g/dL (3.5-5.0); ALT/SGPT 25 U/L (21-72); AST/SGOT 26 U/L (17-59); BLOOD UREA NITROGEN 19 mg/dl (9-20); GFR AFRICAN-AMERICAN > 60; GFR NON-AFRICAN AMERICAN > 60
== END 2017-09-28 17:45 | disposition home or self-care (01) ==
LOC: H.ER 13:29
DX: Z89.511 Acquired absence of right leg below knee (principal); Z89.512 Acquired absence of left leg below knee; E11.9 Type 2 diabetes mellitus without complications